=== PATIENT | male | born 1930 | race Asian ===

== ENCOUNTER 2017-02-16 23:07 | Inpatient (IN) | payer MEDICARE, BC ==
[~2017-02-16] VITALS: Ht 167.6 cm; Wt 68.0 kg
[~2017-02-16 23:07] MED LIST: ALLOPURINOL; CRESTOR; FLOMAX
--- NOTE | 2017-02-16 23:15 | NUR ---
Pt biba from home altered. Pt unresponsive to stimuli, withdraws from pain with shallow tachypnic breathing. Dr. Chew to bedside. Code stroke called at 2311. Unable to complete NIHH scale due to pt being unresponsive. RT called to bedside, pt intubated at 2317 (7.0, 22cm at the lip).
--- NOTE | 2017-02-16 23:17 | NUR ---
Was called to ER, pt to be intubated. RT Solitario and RT Hakan at bedside to assist. Dr. Chew intubated pt with a 7.0 ETT, secured with anchor fast at approximately 22cm at the lip. Subsequently placed on the vent with md orders settings of AC 14, VT 450, Peep +5, FiO2 100%. Vent alarms checked, and audible. Ambu-bag at bedside. Will continue to monitor pt throughout shift.
--- NOTE | 2017-02-16 23:23 | NUR ---
Pt to CT via gurney with RT and RN on monitor.
[2017-02-16] MEDS ORDERED: IV NORMAL SALINE 1000 ML BAG IV ONE (23:30)
--- NOTE | 2017-02-16 23:33 | NUR ---
CALLED [facility] SPOKE WITH ARABELLA FAXED INFO ABOUT PATIENT WILL BE WAITING FOR CALLBACK.
--- NOTE | 2017-02-16 23:35 | NUR ---
Pt returned from CT via [facility].
[2017-02-16] MEDS ORDERED: SIMV40TA5 PO (23:37)
[2017-02-16] MEDS ORDERED: ALLO300T2 PO (23:37)
[2017-02-16] MEDS ORDERED: TAMS0.4C34 PO (23:37)
[2017-02-16] MEDS ORDERED: NORMAL SALINE FLUSH 10 ML DISP.SYRIN ONE (23:39)
[2017-02-16] MEDS ORDERED: IV NORMAL SALINE 0 ML IV ONE (23:40)
[2017-02-16] MEDS ORDERED: IOHEXOL 350 100 ML INFUS..BTL ONE (23:40)
[2017-02-16 23:44] VITALS: BP 215/133
[2017-02-16] MEDS ORDERED: NICARDIPINE IN NS 20 MG/200 ML PIGGYBACK IV ONE (23:45)
[2017-02-16] MEDS ORDERED: MANNITOL 25% 12.5 G/50 ML VIAL IV ONE (23:45)
[2017-02-16] MEDS ORDERED: PROPOFOL 100 ML IV ONE (23:46)
[2017-02-16 23:49] LABS: BASOPHILS # (AUTO) 0.1 K/uL (0.0-8.0); EOSINOPHILS # (AUTO) 0.2 K/uL (0.0-0.7); EOSINOPHILS % (AUTO) 1.6 % (0.0-7.0); HEMATOCRIT 39.7 % (36.7-47.1); HEMOGLOBIN 13.5 g/dL (12.5-16.3); LYMPHOCYTES # (AUTO) 3.5 K/uL (20.0-40.0); LYMPHOCYTES % (AUTO) 33.3 % (20.5-51.5); MEAN CORPUSCULAR HEMOGLOBIN 33.4 uug (23.8-33.4); MEAN CORPUSCULAR HGB CONC 34 g/dL (32.5-36.3); MEAN CORPUSCULAR VOLUME 98.1 fL (73.0-96.2); MONOCYTES # (AUTO) 0.3 K/uL (2.0-10.0); MONOCYTES % (AUTO) 3.1 % (0.0-11.0); NEUTROPHILS # (AUTO) 6.4 K/uL (1.8-8.9); PLATELET COUNT (AUTO) 130 K/uL (152-348); RED BLOOD CELL COUNT(AUTO) 4.05 MIL/uL (4.06-5.63); WHITE BLOOD COUNT (AUTO) 10.6 K/uL (3.6-10.2)
[2017-02-16] MEDS ORDERED: NICARDIPINE IN NS 200 ML IV ONE (23:52)
--- NOTE | 2017-02-17 | NUR ---
Call received from [facility] (Janae) who stated their doctor is not accepting the patient.
[2017-02-17 00:01] LABS: CARBON DIOXIDE 25 mmol/L (21-32); CHLORIDE 108 mmol/L (98-107); CREATININE 1.1 mg/dL (0.6-1.3); GLUCOSE 211 mg/dL (74-106); UREA NITROGEN, BLOOD 15 mg/dL (7-18)
[2017-02-17] MEDS ORDERED: MANNITOL 25% 12.5 G/50 ML VIAL IV ONE ×3 (00:02→06:36)
--- NOTE | 2017-02-17 00:03 | NUR ---
[facility]
[2017-02-17 00:05] LABS: POTASSIUM 2.8 mmol/L (3.5-5.1)
[2017-02-17 00:07] LABS: ALANINE AMINOTRANSFERASE 40 U/L (16-63); ALKALINE PHOSPHATASE 74 U/L (50-136); ASPARTATE AMINOTRANSFERASE 34 U/L (15-37); BILIRUBIN,DIRECT 0.1 mg/dL (0.0-0.2); BILIRUBIN,TOTAL 0.4 mg/dL (0.2-1.0); CHOLESTEROL 159 mg/dL (<200); HDL CHOLESTEROL 53 mg/dL (40-60); TRIGLYCERIDES 152 MG/DL (30-150)
[2017-02-17] MEDS ORDERED: PROPOFOL 100 ML ONE (00:17)
[2017-02-17 00:20] LABS: *AMPHETAMINE, URINE NEGATIVE (NEGATIVE); *BARBITURATE, URINE NEGATIVE (NEGATIVE); *CANNABINOID, URINE NEGATIVE (NEGATIVE); *COCCAINE, URINE NEGATIVE (NEGATIVE); *OPIATE, URINE NEGATIVE (NEGATIVE); *PHENCYCLIDINE SCREEN,URINE NEGATIVE (NEGATIVE)
--- NOTE | 2017-02-17 00:50 | NUR ---
Family escorted to bedside by .
--- NOTE | 2017-02-17 00:51 | NUR ---
Dr. Chew notified of continued decreased blood pressure. Cardene stopped at this time. MD to bedside to speak with pt's family
[2017-02-17 00:52] LABS: ABG HCO3 23.1 mmol/L; ABG PCO2 49.5 mmHg (35.0-45.0); ABG PH 7.286 (7.350-7.450); ABG PO2 119.3 mmHg (75.0-100.0); ABG SITE RIGHT RADIAL; ABG TOTAL HEMOGLOBIN 14.2 G/dL (13.5-18.0); COHb 0.8 % (0.5-1.5); MetHb 0.4 % (0.0-1.5); O2Hb 96.9 % (94.0-97.0); VENT MODE VENT - A/C; VT, ABG 450 mL
--- NOTE | 2017-02-17 00:57 | NUR ---
ABG results given to Dr. Chew, per MD order increased respiratory rate to 18.
--- NOTE | 2017-02-17 01:17 | NUR ---
Pt's blood pressure remains low. Dr. Chew notified, no further orders received at this time.
[2017-02-17] MEDS ORDERED: HYDROCODONE/APAP 5-325MG TABLET PO PRN (01:30)
[2017-02-17] MEDS ORDERED: ACETAMINOPHEN 325 MG TABLET PO PRN ×2 (01:30→04:15)
[2017-02-17] MEDS ORDERED: ONDANSETRON 4 MG/2 ML VIAL IV PRN ×2 (01:30→04:15)
[2017-02-17] MEDS ORDERED: MAGNESIUM HYDROXIDE 30 ML LIQUID UDC PO PRN (01:30)
--- NOTE | 2017-02-17 01:57 | NUR ---
Dr. Chew into speak with family about pt's prognosis. Proprofol dc'd at this time per MD. Both pupils blown and unreactive at this time per MD.
--- NOTE | 2017-02-17 02:30 | NUR ---
No change in pt condition at this time.
--- NOTE | 2017-02-17 03:14 | NUR ---
BENNY Almeida at bedside.
[2017-02-17] MEDS ORDERED: NICARDIPINE IN NS 20 MG/200 ML PIGGYBACK IV ONE (04:15)
[2017-02-17] MEDS ORDERED: PROPOFOL 100 ML IV PRN (04:15)
[2017-02-17] MEDS ORDERED: ZOLPIDEM 5 MG TABLET PO PRN (04:15)
[2017-02-17] MEDS ORDERED: Z GUARD REMEDY PASTE 57 GM TUBE TOP PRN (04:15)
[2017-02-17] MEDS ORDERED: MORPHINE SULFATE 4 MG/1 ML DISP.SYRIN IV ONE ×3 (04:15→18:15)
[2017-02-17] MEDS ORDERED: MORPHINE SULFATE 4 MG/1 ML DISP.SYRIN ONE ×3 (04:22→18:34)
[2017-02-17] MEDS ORDERED: LEVETIRACETAM IV 500 MG in IV DEXTROSE 5% 100 ML IV SCH (04:30)
--- NOTE | 2017-02-17 05:04 | NUR ---
Multiple attempts at placing an NG tube unsuccessful. Pt had 3 episodes of vomiting. BENNY Almeida paged.
--- NOTE | 2017-02-17 05:20 | NUR ---
Paged and spoke with BENNY Almeida. Updated her that unable to obtain a NG tube, pt conts vomiting and after NG attempts the twitching and tremors worsened slightly. Received verbal order for Morphine 4 mg IVP. Cont to hold cardene and propofol at this time.
--- NOTE | 2017-02-17 05:24 | NUR ---
BENNY Almeida notified of pt's lactic acid.
[2017-02-17] MEDS ORDERED: LEVETIRACETAM 500 MG/5 ML VIAL IV ONE (05:26)
[2017-02-17] MEDS ORDERED: ONDANSETRON 4 MG/2 ML VIAL ONE (05:26)
[2017-02-17] MEDS: POTASSIUM CHLORIDE 10 MEQ, LIDOCAINE-MPF 1% 1 ML in IV DEXTROSE 5% 100 ML IV SCH ×4 (05:30→12:04)
[2017-02-17 06:52] LABS: CARBON DIOXIDE 24 mmol/L (21-32); CHLORIDE 107 mmol/L (98-107); CREATININE 1.5 mg/dL (0.6-1.3); GLUCOSE 253 mg/dL (74-106); MAGNESIUM 1.7 mg/dL (1.8-2.4); PHOSPHOROUS 3.9 mg/dL (2.5-4.9); POTASSIUM 3.4 mmol/L (3.5-5.1); UREA NITROGEN, BLOOD 18 mg/dL (7-18)
[2017-02-17 06:57] LABS: HEMATOCRIT 41.5 % (36.7-47.1); HEMOGLOBIN 13.5 g/dL (12.5-16.3); MEAN CORPUSCULAR HEMOGLOBIN 32.3 uug (23.8-33.4); MONOCYTES # (AUTO) 1.2 K/uL (2.0-10.0); MONOCYTES % (AUTO) 6.3 % (0.0-11.0); NEUTROPHILS # (AUTO) 17.5 K/uL (1.8-8.9)
--- NOTE | 2017-02-17 07:05 | NUR ---
Movement, twitching and tremors improved, have lessened but not resolved. No further vomiting noted at this time. Pt cleaned and changed.
[2017-02-17 07:07] LABS: BASOPHILS % (AUTO) 0.2 % (0.0-2.0); EOSINOPHILS % (AUTO) 0.1 % (0.0-7.0); LYMPHOCYTES # (AUTO) 0.9 K/uL (20.0-40.0); LYMPHOCYTES % (AUTO) 4.6 % (20.5-51.5); MEAN CORPUSCULAR HGB CONC 33 g/dL (32.5-36.3); MEAN CORPUSCULAR VOLUME 99.1 fL (73.0-96.2); NEUTROPHILS % (AUTO) 88.8 % (38.5-71.5); PLATELET COUNT (AUTO) 144 K/uL (152-348); RED BLOOD CELL COUNT(AUTO) 4.19 MIL/uL (4.06-5.63)
[2017-02-17 07:09] LABS: WHITE BLOOD COUNT (AUTO) 19.7 K/uL (3.6-10.2)
--- NOTE | 2017-02-17 07:20 | NUR ---
Report given to LIUDMILA Woodson. I relinquish care of pt at this time.
[2017-02-17 07:46] LABS: BAND % (MANUAL) 4 % (0-10); BASOPHILS % (MANUAL) 1 % (0-2); LYMPHOCYTES % (MANUAL) 4 % (20-40); METAMYELOCYTES % 1 % (0-1); MONOCYTES % (MANUAL) 3 % (2-10); NEUTROPHILS % (MANUAL) 87 % (42-75)
--- NOTE | 2017-02-17 07:49 | NUR ---
PT IS IN BED #1A. RELATIVES AT THE BEDSIDE. CONTINUE TO MONITOR THE PT.
--- NOTE | 2017-02-17 08:28 | NUR ---
DR HAMM WAS CALLED BY PT'S RELATIVES REQUEST TO GET NEW UPDATE ON PT's HEALTH CARE PLAN. WAITING FOR HIS CALL BACK. CONTINUE TO MONITOR THE PT.
--- NOTE | 2017-02-17 08:55 | NUR ---
DR HAMM CALLED BACK. HE IS GOING TO VISIT PT IN NEXT 2 HOURS. RELATIVES WERE NOTIFIED. CONTINUE TO MONITOR THE PT.
[2017-02-17] MEDS ORDERED: LEVETIRACETAM IV 500 MG in IV DEXTROSE 5% 100 ML IV ONE (11:30)
--- NOTE | 2017-02-17 12:36 | NUR ---
NEUROLOGYST EVALUATED THE PT. RELATIVES AT THE BEDSIDE. CONTINUE TO MONITOR THE PT.
[2017-02-17] MEDS: LEVETIRACETAM IV 500 MG in IV DEXTROSE 5% 100 ML IV SCH ×2 (18:22→18:23)
--- NOTE | 2017-02-17 18:34 | NUR ---
DR SCHULTE DISCUSSED PT's CASE WITH PT's FAMILY. PT WAS EXTUBATED BY DR SCHULTE. RELATIVES AT THE BEDSIDE.
[2017-02-17] MEDS ORDERED: ROCURONIUM BROMIDE 50 MG/5 ML VIAL IV ONE ×2 (18:44)
[2017-02-17] MEDS ORDERED: ETOMIDATE 20 MG/10 ML VIAL IV ONE ×2 (18:44)
--- NOTE | 2017-02-17 19:04 | NUR ---
Assumed care of patient from Chintan NUR. Patient is declining in status.
--- NOTE | 2017-02-17 19:13 | NUR ---
RELATIVES AT THE BEDSIDE. REPORT WAS GIVEN TO PICTURE BOOKER RN.
--- NOTE | 2017-02-17 19:23 | NUR ---
Care signed over from Dr. Alvarez. She had him extubated at 1830. I was called by nursing at 191 that the patient was no longer breathing. I went into the room and he had no spontaneous breath sounds and he had no pulse nor did he have heart sounds. This is all consistent with . Time of called at 192.
--- NOTE | 2017-02-17 19:25 | NUR ---
[address] Chew.
--- NOTE | 2017-02-17 19:39 | NUR ---
Spoke to Marika at [facility]. They will not proceed with this case, it is cleared to be released.
--- NOTE | 2017-02-17 19:43 | NUR ---
This is not a Corroner's case per ER MD.
--- NOTE | 2017-02-17 19:54 | NUR ---
signed the Authorization to release remains[facility] information : [facility] , [address] [place] [address], [address]. [phone]. Spoke to Celestino Heath from [facility].
--- NOTE | 2017-02-17 21:13 | NUR ---
Spoke with Allen, the street flusher driver is on the way at this time. ETA <60 min
--- NOTE | 2017-02-17 22:23 | NUR ---
Spoke with joleen at this time. Per mortuary, there is no record or request for patient vegetable picker in their file. They are not sure how the request got lost.
--- NOTE | 2017-02-17 22:30 | NUR ---
Spoke with Armando, Case # [id number]. Spoke with Kassi. ETA 2-3 hours
--- NOTE | 2017-02-17 22:38 | NUR ---
Patient taken to [facility]. All patient files including release of body form provided to Automobile Damage Field Appraiser Grisel NUR.
--- NOTE | 2017-02-17 23:09 | NUR ---
Mortuary bulk picker arrived, directed to Grisel NURboat oar maker for patient chart/patient bulk picker/finalization of paperwork.
== END 2017-02-17 19:20 | disposition expired | DRG 64 ==
LOC: ER 23:10 → OBSER 23:40 → UNDODISIN 02-18 01:41
PROVIDERS: ADMIT Nurse Practitioner Acute Care; ATTEND Nurse Practitioner Acute Care
PROC: 0BH17EZ Insertion of Endotracheal Airway into Trachea, Via Natural or Artificial Opening (ICD-10-PCS; principal; 2017-02-16)
PROC: 5A1935Z Respiratory Ventilation, Less than 24 Consecutive Hours (ICD-10-PCS; 2017-02-16)
DX: I61.5 Nontraumatic intracerebral hemorrhage, intraventricular (principal); J96.01 Acute respiratory failure with hypoxia; G93.49 Other encephalopathy; G91.9 Hydrocephalus, unspecified; Z66 Do not resuscitate; Z51.5 Encounter for palliative care; I60.9 Nontraumatic subarachnoid hemorrhage, unspecified; E78.5 Hyperlipidemia, unspecified; I69.098 Other sequelae following nontraumatic subarachnoid hemorrhage; M10.9 Gout, unspecified; Z79.899 Other long term (current) drug therapy; N40.0 Benign prostatic hyperplasia without lower urinary tract symptoms; R40.2431 Glasgow coma scale score 3-8, in the field [EMT or ambulance]; I51.7 Cardiomegaly; R56.9 Unspecified convulsions; R11.10 Vomiting, unspecified
CPT/HCPCS: 36415; 36600; 70030-TC; 70450; 71010; 80307; 83605; 83735; 84100; 85025; 85730; 87040; 93005; 94002; A4663; G0378; J1953; J2001; J2150; J2270; J2405; J3480; J3490; J7050; J7060; Q9967